=== PATIENT | male | born 1950 | race American Indian/Alaskan Native ===

== ENCOUNTER 2016-11-09 11:06 | Day surgery (SDC) | payer MEDICARE ==
[~2016-11-09 11:06] MED LIST: FLAGYL 500 MG/100 ML 100 ML IV SCH; FLAGYL 500 MG/100 ML 500 MG/100 ML BAG IV SCH; OMNIPAQUE 300 MG/50 ML (CATH LAB) IV ONE; WATER FOR IRRIG STERILE IR ONE
[2016-11-09] MEDS ORDERED: DIPRIVAN 10 MG/ML IV ONE (11:52)
[2016-11-09] MEDS ORDERED: XYLOCAINE MPF 2% ONE (11:53)
[2016-11-09] MEDS ORDERED: SUBLIMAZE ONE (11:53)
--- NOTE | 2016-11-09 11:53 | Anesthesia Consultation ---
Anesthesia Consult and Med Hx Date of service: 11/09/16 - Airway Anesthetic Teeth Evaluation: Bridges ROM Head & Neck: Adequate Mental/Hyoid Distance: Adequate Mallampati Class: Class III Intubation Access Assessment: Probably Good - Pulmonary Exam CTA: Yes - Cardiac Exam Cardiac Exam: RRR - Pre-Operative Health Status ASA Pre-Surgery Classification: ASA2 Proposed Anesthetic Plan: General - Pre-Anesthesia Comment Pre-Anesthesia Comments: ECG: NSR, ECHO: EF55-60%, mild pulmonary HTN - Pulmonary Hx Smoking: Yes (1 PPD X 40 YRS) Hx Sleep Apnea: Yes (DX SLEEP APNEA WITH CPAP USE.) - Cardiovascular System Hx Hypertension: Yes (X 20 YRS) Hx Heart Murmur: Yes (CAUSES NO PROBLEMS) - Other Systems Hx Cancer: No - Additional Comments Anesthesia Medical History Comments: NAC
[2016-11-09] MEDS ORDERED: ZOFRAN IV PRN (11:54)
--- NOTE | 2016-11-09 11:54 | Anesthesia Day of Surgery ---
Anesthesia Day of Surgery - Day of Surgery Patient Examined: Yes Patient H&P Reviewed: Yes Patient is NPO: Yes Beta Blockers: Yes
[2016-11-09] MEDS ORDERED: VERSED IV NR (12:00)
[2016-11-09] MEDS ORDERED: NACL 0.9% 1000 ML 1,000 ML IV SCH (12:00)
[2016-11-09] MEDS ORDERED: PEPCID PO NR (12:00)
[2016-11-09] MEDS ORDERED: NACL BACTERIOSTATIC INFILTRATI ONE (12:22)
[2016-11-09] MEDS ORDERED: DECADRON ONE (13:17)
[2016-11-09] MEDS ORDERED: ZOFRAN ONE (13:17)
[2016-11-09] MEDS ORDERED: WATER FOR IRRIG STERILE IR ONE (13:20)
[2016-11-09] MEDS ORDERED: OMNIPAQUE 300 MG/50 ML (CATH LAB) IV ONE (13:34)
--- NOTE | 2016-11-09 13:56 | Short Stay Summary ---
Short Stay Documentation Date of service: 11/09/16 - History H&P: obtained from office - Allergies and Medications Current Medications: Allergies No Known Allergies Allergy (Verified 09/22/16 08:43) Home Medications Medication Instructions Recorded Confirmed Last Taken Type Aspirin [Adult Low Dose Aspirin EC] 81 mg PO DAILY 09/22/16 11/09/16 1 Week Ago History Atenolol/Chlorthalidone [Tenoretic 1 tab PO QDAY 09/22/16 11/09/16 11/09/16 10: 15 History 50-25] Potassium Citrate [Potassium 20 meq PO DAILY 09/22/16 11/09/16 11/08/16 History Citrate ER] Acetaminophen with Codeine 1 tab PO DAILY PRN 11/09/16 11/09/16 11/07/16 History [Acetaminophen-Cod #3 Tablet] Ciprofloxacin (Nf) [Cipro] 1 tab PO BID 11/09/16 11/09/16 11/09/16 10:00 History HYDROcodone/ACETAMINOPHEN 1 tab PO Q4-6H PRN 11/09/16 11/09/16 11/08/16 History [Hydrocodon-Acetaminophen 5-325] Ibuprofen [Motrin 800 MG tab] 1 tab PO TID PRN 11/09/16 11/09/16 11/06/16 History Pumpkin Seed Oil/Saw [place] 2 tab PO BID 11/09/16 11/09/16 11/08/16 History Zolpidem [Ambien] 10 mg PO QHS 11/09/16 11/09/16 11/06/16 History Active Medications Famotidine (Pepcid) 20 mg PO PREOP NR Stop: 11/09/16 23:00 Last Admin: 11/09/16 12:35 Dose: 20 mg Hydromorphone HCl (Dilaudid) 0.5 mg IV Q10MIN PRN PRN Reason: Pain , Severe (7-10) Stop: 11/09/16 18:00 Metronidazole (Flagyl 500 Mg/100 Ml) 500 mg in 100 mls @ 100 mls/hr IV PREOP DONNA Sodium Chloride (Nacl 0.9% 1000 Ml) 1,000 mls @ 75 mls/hr IV DIRECT DONNA Last Admin: 11/09/16 12:40 Dose: 75 mls/hr Midazolam HCl (Versed) 2 mg IV PREOP NR Stop: 11/09/16 23:59 Last Admin: 11/09/16 12:50 Dose: 2 mg Ondansetron HCl (Zofran) 4 mg IV ONCE PRN PRN Reason: Nausea And Vomiting Stop: 11/09/16 18:00 - Brief post op/procedure progress note Date of procedure: 11/09/16 Pre-op diagnosis: elevated psa, bph Post-op diagnosis: same Procedure: cysto, rpg, pus bx (50cc) Anesthesia: GETA Surgeon: ARYAN RAMIREZ Estimated blood loss: minimal Pathology: list (12 core bx) Specimen disposition: to lab Condition: stable - Hospital course Hospital course: norco & cipro - Disposition Condition at discharge: Stable Disposition: DISCHARGED TO HOME OR SELFCARE Short Stay Discharge Plan Follow up with: MARK GOZNALEZ MD [Primary Care Provider] - 7 Days
--- NOTE | 2016-11-09 14:25 | Operative Report ---
PREOPERATIVE DIAGNOSES: 1. Elevated PSA, 4.4. 2. Apifiny 93. POSTOPERATIVE DIAGNOSES: 1. Elevated PSA, 4.4. 2. Apifiny 93. SECONDARY DIAGNOSIS: Benign prostatic hypertrophy. PROCEDURE: Cystoscopy, bilateral retrograde pyelograms, transrectal ultrasound and biopsy of the prostate (50 gram gland). SURGEON: David Sepulveda MD ANESTHESIA: General. ESTIMATED BLOOD LOSS: Minimal. FLUIDS: Crystalloid. COMPLICATIONS: No complications. INDICATIONS: This patient is a 66-year-old gentleman known to my service for BPH, had elevated PSA and Apifiny score. Attempts under local anesthetic were unsuccessful. He presents now for prostate biopsy and cystoscopy. DESCRIPTION OF PROCEDURE: The patient was taken to the operative suite, placed in a supine position. After adequate general anesthesia, placed in a dorsal lithotomy position, prepped and draped in a sterile fashion. Pancystourethroscopy was performed with 22 [place] Storz cystoscope. No urethral abnormalities. His prostate displayed trilobar prostatic obstruction, had a significant median lobe. His bladder, no tumors or stones were noted. He did have some diffuse trabeculation. Bilateral retrograde pyelograms were obtained with an angled 8 [place] Jonathan catheter with aid of a wire. No filling defects or obstruction. He did have some J hooking. Next, attention was taken to the biopsy using a prostate ultrasound. Sagittal and transverse measurements were taken. A 50 gram gland could be appreciated. Twelve core biopsy was taken, 4 at the base, mid, and apex including a lateral biopsy. The patient tolerated the procedure well. He was extubated and taken to the recovery room. He will go home on [facility], and follow up in the office. His primary care physician is Dr. Michael Wilson. JOB# [id number] [facility]
[2016-11-09] MEDS: DILAUDID IV PRN ×2 (14:42→14:50)
--- NOTE | 2016-11-09 17:28 | Post Anesthesia Evaluation ---
- Post Anesthesia Evaluation Patient Participated: Yes Airway Patent: Yes Stable Respiratory Function: Yes Nausea/Vomiting: No Temp > 96.8F: Yes Pain Manageable: Yes Adequeate Hydration: Yes Anesthesia Complications: No Block Receding Appropriately: Not Applicable Patient on Ventilator: No
[2016-11-09 19:15] VITALS: BP 130/76
--- NOTE | 2016-11-10 09:17 | Ultrasound Report ---
ULTRASOUND GUIDANCE INTRAOPERATIVE - TRANSRECTAL: HISTORY: Prostate biopsy guidance. COMPARISON: None similar. FINDINGS: Transabdominal ultrasound guidance provided for Dr. Sepulveda for prostate biopsy. Prostate estimated at 43.1 cc. CONCLUSION: Prostate biopsy performed under ultrasound guidance. Thank you for the opportunity to participate in this patient's care.
--- NOTE | 2016-11-10 09:37 | Fluoroscopy Report ---
FLUORO RETROGRADE UROGRAPHY INDICATION: Elevated PSA, BPH. COMPARISON: None similar at this institution. FINDINGS: Submitted 8 fluoroscopic images demonstrate normal caliber of both imaged ureters. Last obtained image 13 demonstrates approximately 1.5 cm short segment irregular filling of the right proximal ureter at the ureteropelvic junction, nonspecific for technical versus pathologic. No hydronephrosis. CONCLUSION: Intraoperative fluoroscopic assistance provided with nonspecific appearance of the right proximal ureter at the ureteropelvic junction, as described. Please correlate. Thank you for the opportunity to participate in this patient's care.
== END 2016-11-09 17:25 | disposition home or self-care (01) ==
LOC: OR 11:06
PROVIDERS: ATTEND Urology
DX: N40.0 Benign prostatic hyperplasia without lower urinary tract symptoms (principal); F17.210 Nicotine dependence, cigarettes, uncomplicated; I10 Essential (primary) hypertension; G47.33 Obstructive sleep apnea (adult) (pediatric)
CPT/HCPCS: 52005; 55700; 74420; 76998; 88305; A4217; J1100; J1170; J2250; J2405; J2704; J3010; J7030; Q9967; 88342; 88344; C1758